=== PATIENT | male | born 1960 | race Caucasian/White ===

== ENCOUNTER 2021-07-30 21:14 | Observation (INO) | payer MEDICAID, OTHER, SELFPAY ==
[~2021-07-30] VITALS: Ht 170.2 cm; Wt 104.0 kg
[2021-07-31] MEDS ORDERED: PERCOCET 5MG/325MG TAB PO ONE (00:20)
[2021-07-31 00:34] LABS: BASO % 0.3 % (0.0-1.0); EOS # 0.2 10^3/uL (0.0-0.5); EOS % 1.2 % (0.0-3.0); HEMATOCRIT 45.8 % (42.0-52.0); HEMOGLOBIN 15.6 g/dl (13.5-17.5); LYMPH # 2.3 10^3/uL (1.5-5.0); LYMPH % 17.3 % (24.0-44.0); MEAN CORPUSCULAR HGB CONC 34.1 g/dl (32.0-36.5); MONO # 0.9 10^3/uL (0.0-0.8); MONO % 6.9 % (2.0-8.0); NEUTROPHILS # 9.8 10^3/uL (1.5-8.5); NEUTROPHILS % 73.9 % (36.0-66.0); PLATELET COUNT, AUTOMATED 308 10^3/uL (150-450); RED BLOOD COUNT 4.87 10^6/uL (4.30-6.10); WHITE BLOOD COUNT 13.3 10^3/uL (4.0-10.0)
[2021-07-31 00:52] LABS: ERYTHROCYTE SEDIMENTATION RATE 19 mm/hr (0-20)
[2021-07-31 01:22] LABS: ALBUMIN 3.3 GM/DL (3.2-5.2); BILIRUBIN,TOTAL 0.5 MG/DL (0.2-1.0); BLOOD UREA NITROGEN 15 MG/DL (7-18); CALCIUM LEVEL 8.2 MG/DL (8.5-10.1); CARBON DIOXIDE LEVEL 25 MEQ/L (21-32); CHLORIDE LEVEL 109 MEQ/L (98-107); CREATININE FOR GFR 0.95 MG/DL (0.70-1.30); GLOMERULAR FILTRATION RATE > 60.0 (>56); GLUCOSE, FASTING 132 MG/DL (70-100); POTASSIUM SERUM 4.2 MEQ/L (3.5-5.1); SODIUM LEVEL 141 MEQ/L (136-145); TOTAL PROTEIN 6.7 GM/DL (6.4-8.2)
[2021-07-31 01:44] LABS: ALT/SGPT 28 U/L (12-78)
[2021-07-31] MEDS ORDERED: traMADol 50 MG TAB PO PRN (03:10)
[2021-07-31] MEDS ORDERED: KETOROLAC 30 MG/ML 1ML VIAL IV PRN (03:10)
[2021-07-31 03:26] LABS: RSV AMPLIFICATION NEGATIVE (NEGATIVE)
[2021-07-31] MEDS ORDERED: DEXTROSE 50% 50 ML SYRINGE IV PRN (03:45)
[2021-07-31] MEDS ORDERED: GLUCAGON INJ 1MG VIAL SC PRN (03:45)
[2021-07-31] MEDS ORDERED: GLUCOSE 4GM CHEW TABLET PO PRN (03:45)
[2021-07-31] MEDS ORDERED: OXYC10TA3 PO (04:00)
[2021-07-31] MEDS ORDERED: HYDR-3490 PO (04:00)
[2021-07-31] MEDS ORDERED: HOME MED LIST COMPLETE! XX SCH (04:00)
[2021-07-31] MEDS ORDERED: LOPR1TAB7 PO (04:00)
[2021-07-31] MEDS ORDERED: FENO145T7 PO (04:00)
[2021-07-31] MEDS ORDERED: CLON1TAB17 PO (04:00)
[2021-07-31] MEDS ORDERED: ATEN25TA PO (04:00)
[2021-07-31] MEDS ORDERED: MED NOTE (04:00)
[2021-07-31] MEDS ORDERED: SIMV40TA20 PO (04:00)
[2021-07-31] MEDS ORDERED: NEUR600T PO (04:00)
[2021-07-31] MEDS ORDERED: GABAPENTIN 100 MG CAP PO SCH (05:00)
[2021-07-31] MEDS: HEPARIN SOD (PORCINE) 5000UNITS/ML 1ML VIAL/SYRINGE SC SCH ×3 (06:48→21:13)
[2021-07-31] MEDS: INSULIN LISPRO (NovoLOG) PER UNIT SC SCH ×4 (08:16→20:02)
[2021-07-31 09:16] LABS: FREE T4 1.19 NG/DL (0.76-1.46); THYROID STIMULATING HORMONE 2.41 uIU/ML (0.358-3.740)
[2021-07-31] MEDS: PERCOCET 5MG/325MG TAB PO PRN ×2 (12:17→21:13)
[2021-07-31 13:35] VITALS: BP 124/76
[2021-07-31] MEDS: SIMVASTATIN 40 MG TAB PO SCH (13:51)
[2021-07-31] MEDS: FENOFIBRATE 145MG TABLET (TRICOR) PO SCH (13:51)
[2021-07-31] MEDS: clonazePAM 0.5 MG TAB PO SCH ×2 (13:51→21:12)
[2021-07-31] MEDS: METOPROLOL TARTRATE 100MG TAB PO SCH ×2 (13:51→21:03)
[2021-07-31] MEDS: atenoloL 25 MG TAB PO SCH (13:52)
[2021-07-31] MEDS: GABAPENTIN 300 MG CAP PO SCH ×2 (18:03→21:12)
[2021-07-31] MEDS: DULoxetine 20 MG CAP (CYMBALTA) PO SCH (18:04)
[2021-07-31 22:00] VITALS: BP 102/66
[2021-08-01] MEDS: HEPARIN SOD (PORCINE) 5000UNITS/ML 1ML VIAL/SYRINGE SC SCH ×3 (05:17→20:18)
[2021-08-01 06:00] VITALS: BP 103/64
[2021-08-01 06:29] LABS: HEMATOCRIT 42.9 % (42.0-52.0); HEMOGLOBIN 13.9 g/dl (13.5-17.5); MEAN CORPUSCULAR HGB CONC 32.4 g/dl (32.0-36.5); MEAN CORPUSCULAR VOLUME 98.8 fl (80.0-96.0); PLATELET COUNT, AUTOMATED 260 10^3/uL (150-450); RED BLOOD COUNT 4.34 10^6/uL (4.30-6.10); WHITE BLOOD COUNT 10.5 10^3/uL (4.0-10.0)
[2021-08-01 07:07] LABS: BLOOD UREA NITROGEN 24 MG/DL (7-18); CALCIUM LEVEL 8.2 MG/DL (8.5-10.1); CARBON DIOXIDE LEVEL 29 MEQ/L (21-32); CHLORIDE LEVEL 105 MEQ/L (98-107); CREATININE FOR GFR 1.07 MG/DL (0.70-1.30); GLOMERULAR FILTRATION RATE > 60.0 (>56); GLUCOSE, FASTING 139 MG/DL (70-100); POTASSIUM SERUM 4.4 MEQ/L (3.5-5.1); SODIUM LEVEL 141 MEQ/L (136-145)
[2021-08-01] MEDS: atenoloL 25 MG TAB PO SCH (09:00)
[2021-08-01] MEDS: INSULIN LISPRO (NovoLOG) PER UNIT SC SCH ×4 (09:06→20:14)
[2021-08-01] MEDS: SIMVASTATIN 40 MG TAB PO SCH (09:07)
[2021-08-01] MEDS: clonazePAM 0.5 MG TAB PO SCH ×2 (09:07→20:18)
[2021-08-01] MEDS: FENOFIBRATE 145MG TABLET (TRICOR) PO SCH (09:07)
[2021-08-01] MEDS: GABAPENTIN 300 MG CAP PO SCH ×3 (09:07→20:18)
[2021-08-01] MEDS: PERCOCET 5MG/325MG TAB PO PRN ×2 (09:08→20:19)
[2021-08-01] MEDS: DULoxetine 20 MG CAP (CYMBALTA) PO SCH (09:12)
[2021-08-01 14:00] VITALS: BP 108/75
[2021-08-01 22:00] VITALS: BP 104/64
[2021-08-02 05:08] LABS: HEMATOCRIT 41.9 % (42.0-52.0); HEMOGLOBIN 13.6 g/dl (13.5-17.5); MEAN CORPUSCULAR HEMOGLOBIN 31.9 pg (27.0-33.0); MEAN CORPUSCULAR HGB CONC 32.5 g/dl (32.0-36.5); MEAN CORPUSCULAR VOLUME 98.1 fl (80.0-96.0); PLATELET COUNT, AUTOMATED 241 10^3/uL (150-450); RED BLOOD COUNT 4.27 10^6/uL (4.30-6.10); WHITE BLOOD COUNT 8.4 10^3/uL (4.0-10.0)
[2021-08-02] MEDS: HEPARIN SOD (PORCINE) 5000UNITS/ML 1ML VIAL/SYRINGE SC SCH ×2 (05:24→14:19)
[2021-08-02 05:36] LABS: BLOOD UREA NITROGEN 17 MG/DL (7-18); CALCIUM LEVEL 7.8 MG/DL (8.5-10.1); CARBON DIOXIDE LEVEL 30 MEQ/L (21-32); CHLORIDE LEVEL 106 MEQ/L (98-107); CREATININE FOR GFR 0.76 MG/DL (0.70-1.30); GLOMERULAR FILTRATION RATE > 60.0 (>56); GLUCOSE, FASTING 109 MG/DL (70-100); POTASSIUM SERUM 4.2 MEQ/L (3.5-5.1); SODIUM LEVEL 141 MEQ/L (136-145)
[2021-08-02 06:00] VITALS: BP 98/59
[2021-08-02] MEDS: INSULIN LISPRO (NovoLOG) PER UNIT SC SCH ×2 (07:30→11:52)
[2021-08-02 09:00] VITALS: BP 108/80
[2021-08-02] MEDS: atenoloL 25 MG TAB PO SCH (09:00)
[2021-08-02] MEDS: DULoxetine 20 MG CAP (CYMBALTA) PO SCH (09:56)
[2021-08-02] MEDS: SIMVASTATIN 40 MG TAB PO SCH (09:58)
[2021-08-02] MEDS: FENOFIBRATE 145MG TABLET (TRICOR) PO SCH (09:58)
[2021-08-02] MEDS: clonazePAM 0.5 MG TAB PO SCH (09:59)
[2021-08-02] MEDS: GABAPENTIN 300 MG CAP PO SCH (09:59)
[2021-08-02] MEDS ORDERED: GABA-282 PO ×2 (10:17→16:03)
[2021-08-02] MEDS ORDERED: CLON0.5T2 PO ×2 (10:17→16:03)
[2021-08-02] MEDS ORDERED: CYMB1CAP4 PO ×2 (10:17→16:03)
[2021-08-02] MEDS ORDERED: PERCOCET PO (10:17)
[2021-08-02] MEDS: PERCOCET 5MG/325MG TAB PO PRN (11:42)
[2021-08-02 14:00] VITALS: BP 145/94
[2021-08-02] MEDS ORDERED: SIMV40TA20 PO (16:03)
== END 2021-08-02 14:34 ==
LOC: M ED 21:14 → M ED INP 21:15 → ENRESERV 07-31 11:45 → M MSPAV 07-31 13:34
PROVIDERS: ADMIT Internal Medicine; ATTEND Internal Medicine
DX: R53.1 Weakness (principal); Z72.3 Lack of physical exercise; M54.9 Dorsalgia, unspecified; R29.6 Repeated falls; G62.9 Polyneuropathy, unspecified; Z88.0 Allergy status to penicillin; Z79.899 Other long term (current) drug therapy; M25.562 Pain in left knee; M25.572 Pain in left ankle and joints of left foot; W19.XXXA Unspecified fall, initial encounter; Y92.89 Other specified places as the place of occurrence of the external cause; Y93.9 Activity, unspecified; Y99.9 Unspecified external cause status
CPT/HCPCS: 36415; 72128; 72131; 73564; 73610; 80048; 80053; 84439; 84443; 85025; 85027; 85652; 87631; 93005; 96372; 96374; 97116; 97161; 97165; 97530; 97535; 99285; J1644; J1815; J1885

== ENCOUNTER 2021-08-02 12:48 | Inpatient (IN) | payer OTHER, SELFPAY ==
[~2021-08-02] VITALS: Ht 170.2 cm; Wt 104.9 kg
[~2021-08-02 12:48] MED LIST: ATEN25TA PO; CLON0.5T2 PO; CLON1TAB17 PO; CYMB1CAP4 PO; FENO145T7 PO; GABA-282 PO; HYDR-3490 PO; LOPR1TAB7 PO; MED NOTE; NEUR600T PO; OXYC10TA3 PO; PERCOCET PO; SIMV40TA20 PO
[2021-08-02 14:50] VITALS: BP 148/77
[2021-08-02] MEDS ORDERED: DEXTROSE 50% 50 ML SYRINGE IV PRN (15:35)
[2021-08-02] MEDS ORDERED: BISACODYL 10 MG SUPP PR PRN (15:35)
[2021-08-02] MEDS ORDERED: GLUCOSE 4GM CHEW TABLET PO PRN (15:35)
[2021-08-02] MEDS ORDERED: MIRALAX *UNIT DOSE* 17GM PACKET PO PRN (15:35)
[2021-08-02] MEDS ORDERED: GLUCAGON INJ 1MG VIAL SC PRN (15:35)
[2021-08-02] MEDS: REMEDY PHYTOPLEX Z-GUARD PASTE 113GM TUBE (FROM STOREROOM PRODUCT) TOP SCH ×2 (16:00→20:49)
[2021-08-02] MEDS ORDERED: GABA-282 PO (16:03)
[2021-08-02] MEDS ORDERED: SIMV40TA20 PO (16:03)
[2021-08-02] MEDS ORDERED: CLON0.5T2 PO (16:03)
[2021-08-02] MEDS ORDERED: CYMB1CAP4 PO (16:03)
[2021-08-02] MEDS: GABAPENTIN 300 MG CAP PO SCH ×2 (16:03→20:48)
[2021-08-02] MEDS: ACETAMINOPHEN 500 MG TAB PO SCH ×2 (16:03→20:48)
[2021-08-02] MEDS: PANTOPRAZOLE 40MG TAB (PROTONIX) PO SCH (16:04)
[2021-08-02] MEDS ORDERED: HOME MED LIST COMPLETE! XX SCH (16:05)
[2021-08-02] MEDS: HumaLOG INSULIN (NovoLOG) PER UNIT SC SCH ×2 (17:21→20:49)
[2021-08-02] MEDS: oxyCODONE 5MG TAB PO PRN (17:22)
[2021-08-02 20:00] VITALS: BP 148/92
[2021-08-02] MEDS: SENNA 8.6 MG TAB (SENOKOT) PO SCH (20:48)
[2021-08-02] MEDS: DOCUSATE SODIUM 100MG CAPSULE PO SCH (20:48)
[2021-08-02] MEDS: clonazePAM 0.5 MG TAB PO SCH (20:48)
[2021-08-02] MEDS: HEPARIN SOD (PORCINE) 5000UNITS/ML 1ML VIAL/SYRINGE SC SCH (20:49)
[2021-08-03] MEDS: oxyCODONE 5MG TAB PO PRN ×2 (02:13→06:28)
[2021-08-03 06:00] VITALS: BP 140/89
[2021-08-03 07:33] LABS: BASO % 0.4 % (0.0-1.0); EOS # 0.3 10^3/uL (0.0-0.5); EOS % 3.5 % (0.0-3.0); HEMOGLOBIN 13.4 g/dl (13.5-17.5); LYMPH # 1.9 10^3/uL (1.5-5.0); MEAN CORPUSCULAR HEMOGLOBIN 32.1 pg (27.0-33.0); MEAN CORPUSCULAR HGB CONC 32.7 g/dl (32.0-36.5); MEAN CORPUSCULAR VOLUME 98.1 fl (80.0-96.0); MONO # 0.6 10^3/uL (0.0-0.8); MONO % 7.5 % (2.0-8.0); NEUTROPHILS # 5.1 10^3/uL (1.5-8.5); NEUTROPHILS % 63.8 % (36.0-66.0); PLATELET COUNT, AUTOMATED 241 10^3/uL (150-450); RED BLOOD COUNT 4.18 10^6/uL (4.30-6.10)
[2021-08-03 08:02] LABS: ALT/SGPT 29 U/L (12-78); BILIRUBIN,TOTAL 0.8 MG/DL (0.2-1.0); BLOOD UREA NITROGEN 17 MG/DL (7-18); CALCIUM LEVEL 8.3 MG/DL (8.5-10.1); CARBON DIOXIDE LEVEL 31 MEQ/L (21-32); CHLORIDE LEVEL 108 MEQ/L (98-107); CREATININE FOR GFR 0.73 MG/DL (0.70-1.30); GLOMERULAR FILTRATION RATE > 60.0 (>56); GLUCOSE, FASTING 115 MG/DL (70-100); POTASSIUM SERUM 4.2 MEQ/L (3.5-5.1); SODIUM LEVEL 140 MEQ/L (136-145); TOTAL PROTEIN 6.4 GM/DL (6.4-8.2)
[2021-08-03] MEDS: REMEDY PHYTOPLEX Z-GUARD PASTE 113GM TUBE (FROM STOREROOM PRODUCT) TOP SCH ×3 (08:05→20:48)
[2021-08-03] MEDS: HumaLOG INSULIN (NovoLOG) PER UNIT SC SCH ×4 (08:46→20:48)
[2021-08-03] MEDS: SIMVASTATIN 40 MG TAB PO SCH (08:47)
[2021-08-03] MEDS: FENOFIBRATE 145MG TABLET (TRICOR) PO SCH (08:47)
[2021-08-03] MEDS: HEPARIN SOD (PORCINE) 5000UNITS/ML 1ML VIAL/SYRINGE SC SCH ×2 (08:47→20:47)
[2021-08-03] MEDS: ACETAMINOPHEN 500 MG TAB PO SCH (08:47)
[2021-08-03] MEDS: DULoxetine 20 MG CAP (CYMBALTA) PO SCH (08:47)
[2021-08-03] MEDS: PANTOPRAZOLE 40MG TAB (PROTONIX) PO SCH (08:47)
[2021-08-03] MEDS: GABAPENTIN 300 MG CAP PO SCH ×3 (08:47→20:45)
[2021-08-03] MEDS: clonazePAM 0.5 MG TAB PO SCH ×2 (08:47→20:46)
[2021-08-03] MEDS: DOCUSATE SODIUM 100MG CAPSULE PO SCH ×2 (08:48→20:45)
[2021-08-03] MEDS: PERCOCET 5MG/325MG TAB PO SCH ×3 (12:48→20:47)
[2021-08-03] MEDS: LIDOCAINE 5% (LIDODERM) PATCH TD SCH (12:49)
[2021-08-03] MEDS: predniSONE 5 MG TAB PO SCH (12:51)
[2021-08-03 14:00] VITALS: BP 124/82
[2021-08-03 20:00] VITALS: BP 122/78
[2021-08-03] MEDS: SENNA 8.6 MG TAB (SENOKOT) PO SCH (20:45)
[2021-08-03] MEDS: **NOTE PATIENT COMMENT** MISC XX SCH (20:49)
[2021-08-04 06:00] VITALS: BP 118/80
[2021-08-04] MEDS: PERCOCET 5MG/325MG TAB PO SCH ×4 (06:30→21:13)
[2021-08-04 06:57] LABS: BASO % 0.3 % (0.0-1.0); EOS # 0.3 10^3/uL (0.0-0.5); EOS % 2.5 % (0.0-3.0); HEMATOCRIT 42.5 % (42.0-52.0); HEMOGLOBIN 13.8 g/dl (13.5-17.5); LYMPH # 1.9 10^3/uL (1.5-5.0); LYMPH % 18.8 % (24.0-44.0); MEAN CORPUSCULAR HEMOGLOBIN 31.7 pg (27.0-33.0); MEAN CORPUSCULAR HGB CONC 32.5 g/dl (32.0-36.5); MEAN CORPUSCULAR VOLUME 97.7 fl (80.0-96.0); MONO # 0.7 10^3/uL (0.0-0.8); MONO % 7.3 % (2.0-8.0); NEUTROPHILS % 70.3 % (36.0-66.0); PLATELET COUNT, AUTOMATED 242 10^3/uL (150-450); RED BLOOD COUNT 4.35 10^6/uL (4.30-6.10); WHITE BLOOD COUNT 9.9 10^3/uL (4.0-10.0)
[2021-08-04 07:28] LABS: BLOOD UREA NITROGEN 17 MG/DL (7-18); CALCIUM LEVEL 8.4 MG/DL (8.5-10.1); CARBON DIOXIDE LEVEL 32 MEQ/L (21-32); CHLORIDE LEVEL 103 MEQ/L (98-107); GLOMERULAR FILTRATION RATE > 60.0 (>56); GLUCOSE, FASTING 116 MG/DL (70-100); POTASSIUM SERUM 4.5 MEQ/L (3.5-5.1); SODIUM LEVEL 139 MEQ/L (136-145)
[2021-08-04] MEDS: REMEDY PHYTOPLEX Z-GUARD PASTE 113GM TUBE (FROM STOREROOM PRODUCT) TOP SCH ×3 (09:00→21:00)
[2021-08-04] MEDS: HumaLOG INSULIN (NovoLOG) PER UNIT SC SCH ×4 (09:21→21:22)
[2021-08-04] MEDS: LIDOCAINE 5% (LIDODERM) PATCH TD SCH (09:22)
[2021-08-04] MEDS: SIMVASTATIN 40 MG TAB PO SCH (09:23)
[2021-08-04] MEDS: clonazePAM 0.5 MG TAB PO SCH ×3 (09:23→21:13)
[2021-08-04] MEDS: HEPARIN SOD (PORCINE) 5000UNITS/ML 1ML VIAL/SYRINGE SC SCH ×2 (09:23→21:11)
[2021-08-04] MEDS: DOCUSATE SODIUM 100MG CAPSULE PO SCH ×2 (09:23→21:13)
[2021-08-04] MEDS: GABAPENTIN 300 MG CAP PO SCH ×3 (09:24→21:11)
[2021-08-04] MEDS: predniSONE 5 MG TAB PO SCH (09:24)
[2021-08-04] MEDS: DULoxetine 20 MG CAP (CYMBALTA) PO SCH (09:24)
[2021-08-04] MEDS: FENOFIBRATE 145MG TABLET (TRICOR) PO SCH (09:24)
[2021-08-04] MEDS: PANTOPRAZOLE 40MG TAB (PROTONIX) PO SCH (09:24)
[2021-08-04 14:00] VITALS: BP 130/78
[2021-08-04 20:30] VITALS: BP 110/62
[2021-08-04] MEDS: SENNA 8.6 MG TAB (SENOKOT) PO SCH (21:14)
[2021-08-04] MEDS: **NOTE PATIENT COMMENT** MISC XX SCH (21:22)
[2021-08-05] MEDS: oxyCODONE 5MG TAB PO PRN (02:27)
[2021-08-05 06:00] VITALS: BP 132/80
[2021-08-05] MEDS: PERCOCET 5MG/325MG TAB PO SCH ×4 (06:32→21:20)
[2021-08-05] MEDS: HumaLOG INSULIN (NovoLOG) PER UNIT SC SCH ×4 (08:45→21:00)
[2021-08-05] MEDS: DULoxetine 20 MG CAP (CYMBALTA) PO SCH (08:47)
[2021-08-05] MEDS: predniSONE 5 MG TAB PO SCH (08:47)
[2021-08-05] MEDS: clonazePAM 0.5 MG TAB PO SCH ×3 (08:48→21:19)
[2021-08-05] MEDS: HEPARIN SOD (PORCINE) 5000UNITS/ML 1ML VIAL/SYRINGE SC SCH ×2 (08:49→21:18)
[2021-08-05] MEDS: GABAPENTIN 300 MG CAP PO SCH ×3 (08:49→21:19)
[2021-08-05] MEDS: PANTOPRAZOLE 40MG TAB (PROTONIX) PO SCH (08:49)
[2021-08-05] MEDS: SIMVASTATIN 40 MG TAB PO SCH (08:49)
[2021-08-05] MEDS: FENOFIBRATE 145MG TABLET (TRICOR) PO SCH (08:49)
[2021-08-05] MEDS: LIDOCAINE 5% (LIDODERM) PATCH TD SCH (08:51)
[2021-08-05] MEDS: REMEDY PHYTOPLEX Z-GUARD PASTE 113GM TUBE (FROM STOREROOM PRODUCT) TOP SCH ×3 (08:52→21:00)
[2021-08-05] MEDS: DOCUSATE SODIUM 100MG CAPSULE PO SCH ×2 (08:54→21:19)
[2021-08-05 09:01] VITALS: BP 137/80
[2021-08-05] MEDS: ONDANSETRON 4 MG ORAL DISINTEGRATING TAB PO PRN (12:46)
[2021-08-05 13:27] VITALS: BP 157/83
[2021-08-05 20:00] VITALS: BP 127/75
[2021-08-05] MEDS: SENNA 8.6 MG TAB (SENOKOT) PO SCH (21:19)
[2021-08-05] MEDS: **NOTE PATIENT COMMENT** MISC XX SCH (21:20)
[2021-08-06] MEDS: oxyCODONE 5MG TAB PO PRN (02:43)
[2021-08-06 06:00] VITALS: BP 137/85
[2021-08-06] MEDS ORDERED: IPRATROPIUM 0.5MG/ALBUTEROL 2.5MG INH SOL UD 3ML (DUONEB) NEB ONE (06:15)
[2021-08-06 06:36] LABS: BASO # 0.1 10^3/uL (0.0-0.2); BASO % 0.3 % (0.0-1.0); EOS # 0.2 10^3/uL (0.0-0.5); EOS % 1.3 % (0.0-3.0); HEMATOCRIT 43.7 % (42.0-52.0); HEMOGLOBIN 13.9 g/dl (13.5-17.5); LYMPH # 1.3 10^3/uL (1.5-5.0); LYMPH % 8.2 % (24.0-44.0); MEAN CORPUSCULAR HEMOGLOBIN 32.2 pg (27.0-33.0); MEAN CORPUSCULAR HGB CONC 31.8 g/dl (32.0-36.5); MEAN CORPUSCULAR VOLUME 101.2 fl (80.0-96.0); MONO # 1.1 10^3/uL (0.0-0.8); MONO % 7.2 % (2.0-8.0); NEUTROPHILS # 12.4 10^3/uL (1.5-8.5); NEUTROPHILS % 81.8 % (36.0-66.0); PLATELET COUNT, AUTOMATED 241 10^3/uL (150-450); RED BLOOD COUNT 4.32 10^6/uL (4.30-6.10); VENOUS HCO3 27.1 MEQ/L (23.0-27.0); VENOUS O2 SATURATION 96.4 % (60.0-80.0); VENOUS PARTIAL PRESSURE CO2 48.7 mmHg (38.0-50.0); VENOUS PARTIAL PRESSURE O2 84.9 mmHg (30.0-50.0); VENOUS PH 7.363 UNITS (7.330-7.430); VENOUS STANDARD HCO3 25.3 MEQ/L; VENOUS TOTAL CO2 28.6 MEQ/L (24.0-28.0); WHITE BLOOD COUNT 15.2 10^3/uL (4.0-10.0)
[2021-08-06 07:09] LABS: BLOOD UREA NITROGEN 18 MG/DL (7-18); CALCIUM LEVEL 8.1 MG/DL (8.5-10.1); CARBON DIOXIDE LEVEL 31 MEQ/L (21-32); CHLORIDE LEVEL 102 MEQ/L (98-107); GLOMERULAR FILTRATION RATE > 60.0 (>56); GLUCOSE, FASTING 178 MG/DL (70-100); NT-PRO BNP 253 PG/ML (<125); POTASSIUM SERUM 5.3 MEQ/L (3.5-5.1); SODIUM LEVEL 137 MEQ/L (136-145)
[2021-08-06] MEDS: PERCOCET 5MG/325MG TAB PO SCH ×4 (08:05→20:25)
[2021-08-06] MEDS: predniSONE 5 MG TAB PO SCH (08:06)
[2021-08-06] MEDS: HEPARIN SOD (PORCINE) 5000UNITS/ML 1ML VIAL/SYRINGE SC SCH ×2 (08:06→20:23)
[2021-08-06] MEDS: clonazePAM 0.5 MG TAB PO SCH ×3 (08:06→20:23)
[2021-08-06] MEDS: PANTOPRAZOLE 40MG TAB (PROTONIX) PO SCH (08:06)
[2021-08-06] MEDS: GABAPENTIN 300 MG CAP PO SCH ×3 (08:06→20:24)
[2021-08-06] MEDS: FENOFIBRATE 145MG TABLET (TRICOR) PO SCH (08:06)
[2021-08-06] MEDS: DOCUSATE SODIUM 100MG CAPSULE PO SCH ×2 (08:06→20:23)
[2021-08-06] MEDS: HumaLOG INSULIN (NovoLOG) PER UNIT SC SCH ×4 (08:06→20:25)
[2021-08-06] MEDS: SIMVASTATIN 40 MG TAB PO SCH (08:06)
[2021-08-06] MEDS: DULoxetine 20 MG CAP (CYMBALTA) PO SCH (08:06)
[2021-08-06] MEDS: guaiFENesin ER 600 MG TAB PO PRN (08:07)
[2021-08-06] MEDS: LIDOCAINE 5% (LIDODERM) PATCH TD SCH (08:07)
[2021-08-06] MEDS: REMEDY PHYTOPLEX Z-GUARD PASTE 113GM TUBE (FROM STOREROOM PRODUCT) TOP SCH ×3 (08:07→20:25)
[2021-08-06] MEDS: IPRATROPIUM 0.5MG/ALBUTEROL 2.5MG INH SOL UD 3ML (DUONEB) NEB SCH ×2 (08:07→14:00)
[2021-08-06] MEDS: LevoFLOXacin IV 750 MG in IV 1 EA IV SCH (08:57)
[2021-08-06 14:00] VITALS: BP 138/78
[2021-08-06 20:00] VITALS: BP 142/83
[2021-08-06] MEDS: SENNA 8.6 MG TAB (SENOKOT) PO SCH (20:24)
[2021-08-06] MEDS: **NOTE PATIENT COMMENT** MISC XX SCH (20:25)
[2021-08-07] MEDS: oxyCODONE 5MG TAB PO PRN (02:08)
[2021-08-07 06:40] VITALS: BP 140/88
[2021-08-07] MEDS: IPRATROPIUM 0.5MG/ALBUTEROL 2.5MG INH SOL UD 3ML (DUONEB) NEB SCH ×2 (07:25→15:14)
[2021-08-07] MEDS: HEPARIN SOD (PORCINE) 5000UNITS/ML 1ML VIAL/SYRINGE SC SCH ×2 (07:33→20:46)
[2021-08-07] MEDS: HumaLOG INSULIN (NovoLOG) PER UNIT SC SCH ×4 (07:34→20:47)
[2021-08-07] MEDS: clonazePAM 0.5 MG TAB PO SCH ×3 (07:34→20:46)
[2021-08-07] MEDS: PANTOPRAZOLE 40MG TAB (PROTONIX) PO SCH (07:34)
[2021-08-07] MEDS: DULoxetine 20 MG CAP (CYMBALTA) PO SCH (07:34)
[2021-08-07] MEDS: GABAPENTIN 300 MG CAP PO SCH ×3 (07:34→20:46)
[2021-08-07] MEDS: SIMVASTATIN 40 MG TAB PO SCH (07:34)
[2021-08-07] MEDS: PERCOCET 5MG/325MG TAB PO SCH ×4 (07:35→20:46)
[2021-08-07] MEDS: FENOFIBRATE 145MG TABLET (TRICOR) PO SCH (07:35)
[2021-08-07] MEDS: predniSONE 5 MG TAB PO SCH (07:35)
[2021-08-07] MEDS: DOCUSATE SODIUM 100MG CAPSULE PO SCH ×2 (07:36→20:46)
[2021-08-07] MEDS: REMEDY PHYTOPLEX Z-GUARD PASTE 113GM TUBE (FROM STOREROOM PRODUCT) TOP SCH ×3 (07:36→20:47)
[2021-08-07] MEDS: LIDOCAINE 5% (LIDODERM) PATCH TD SCH (07:36)
[2021-08-07 07:57] LABS: BASO # 0.1 10^3/uL (0.0-0.2); BASO % 0.4 % (0.0-1.0); EOS # 0.2 10^3/uL (0.0-0.5); EOS % 1.4 % (0.0-3.0); HEMATOCRIT 39.2 % (42.0-52.0); HEMOGLOBIN 12.7 g/dl (13.5-17.5); LYMPH # 1.5 10^3/uL (1.5-5.0); LYMPH % 10.5 % (24.0-44.0); MEAN CORPUSCULAR HEMOGLOBIN 32.2 pg (27.0-33.0); MEAN CORPUSCULAR HGB CONC 32.4 g/dl (32.0-36.5); MEAN CORPUSCULAR VOLUME 99.2 fl (80.0-96.0); MONO # 1.1 10^3/uL (0.0-0.8); MONO % 7.4 % (2.0-8.0); NEUTROPHILS # 11.2 10^3/uL (1.5-8.5); PLATELET COUNT, AUTOMATED 224 10^3/uL (150-450); RED BLOOD COUNT 3.95 10^6/uL (4.30-6.10); WHITE BLOOD COUNT 14.2 10^3/uL (4.0-10.0)
[2021-08-07 08:36] LABS: BLOOD UREA NITROGEN 15 MG/DL (7-18); CALCIUM LEVEL 8.4 MG/DL (8.5-10.1); CARBON DIOXIDE LEVEL 35 MEQ/L (21-32); CHLORIDE LEVEL 98 MEQ/L (98-107); CREATININE FOR GFR 0.84 MG/DL (0.70-1.30); GLOMERULAR FILTRATION RATE > 60.0 (>56); GLUCOSE, FASTING 128 MG/DL (70-100); MAGNESIUM LEVEL 1.9 MG/DL (1.8-2.4); POTASSIUM SERUM 4.1 MEQ/L (3.5-5.1); SODIUM LEVEL 138 MEQ/L (136-145)
[2021-08-07] MEDS: LevoFLOXacin IV 750 MG in IV 1 EA IV SCH (09:38)
[2021-08-07 14:00] VITALS: BP 134/68
[2021-08-07] MEDS: COMBIVENT RESPIMAT 100-20MCG INHALER 4GM INH SCH (17:51)
[2021-08-07 20:05] VITALS: BP 134/84
[2021-08-07] MEDS: SENNA 8.6 MG TAB (SENOKOT) PO SCH (20:46)
[2021-08-07] MEDS: **NOTE PATIENT COMMENT** MISC XX SCH (20:47)
[2021-08-08] MEDS: COMBIVENT RESPIMAT 100-20MCG INHALER 4GM INH SCH ×4 (02:00→20:20)
[2021-08-08] MEDS: oxyCODONE 5MG TAB PO PRN (02:07)
[2021-08-08 05:50] VITALS: BP 146/72
[2021-08-08] MEDS: LevoFLOXacin 750 MG TABLET PO SCH (05:56)
[2021-08-08] MEDS: PERCOCET 5MG/325MG TAB PO SCH ×2 (06:26→12:07)
[2021-08-08] MEDS: HumaLOG INSULIN (NovoLOG) PER UNIT SC SCH ×4 (08:42→20:03)
[2021-08-08] MEDS: LIDOCAINE 5% (LIDODERM) PATCH TD SCH (08:43)
[2021-08-08] MEDS: HEPARIN SOD (PORCINE) 5000UNITS/ML 1ML VIAL/SYRINGE SC SCH ×2 (08:44→20:57)
[2021-08-08] MEDS: PANTOPRAZOLE 40MG TAB (PROTONIX) PO SCH (08:45)
[2021-08-08] MEDS: FENOFIBRATE 145MG TABLET (TRICOR) PO SCH (08:46)
[2021-08-08] MEDS: DOCUSATE SODIUM 100MG CAPSULE PO SCH ×2 (08:46→20:57)
[2021-08-08] MEDS: GABAPENTIN 300 MG CAP PO SCH ×3 (08:46→20:57)
[2021-08-08] MEDS: clonazePAM 0.5 MG TAB PO SCH ×3 (08:46→20:57)
[2021-08-08] MEDS: SIMVASTATIN 40 MG TAB PO SCH (08:46)
[2021-08-08] MEDS: DULoxetine 20 MG CAP (CYMBALTA) PO SCH (08:46)
[2021-08-08] MEDS: predniSONE 5 MG TAB PO SCH (08:47)
[2021-08-08] MEDS: REMEDY PHYTOPLEX Z-GUARD PASTE 113GM TUBE (FROM STOREROOM PRODUCT) TOP SCH ×3 (08:47→20:59)
[2021-08-08 14:00] VITALS: BP 126/86
[2021-08-08] MEDS ORDERED: oxyCODONE 5MG TAB PO PRN ×2 (16:10→17:00)
[2021-08-08] MEDS ORDERED: clonazePAM 0.5 MG TAB PO PRN (16:15)
[2021-08-08] MEDS ORDERED: PILL CUTTER 1 EACH XX PRN (16:20)
[2021-08-08] MEDS: ACETAMINOPHEN 500 MG TAB PO SCH ×2 (17:01→20:57)
[2021-08-08 20:00] VITALS: BP 116/70
[2021-08-08] MEDS: oxyCODONE 10 MG CR TAB PO SCH (20:06)
[2021-08-08] MEDS: MELOXICAM (MOBIC) 7.5 MG TAB PO SCH (20:57)
[2021-08-08] MEDS: SENNA 8.6 MG TAB (SENOKOT) PO SCH (20:57)
[2021-08-08] MEDS: **NOTE PATIENT COMMENT** MISC XX SCH (20:59)
[2021-08-08] MEDS ORDERED: oxyCODONE 10 MG CR TAB PO SCH (21:00)
[2021-08-09] MEDS: oxyCODONE 5MG TAB PO PRN ×4 (00:27→16:19)
[2021-08-09] MEDS: COMBIVENT RESPIMAT 100-20MCG INHALER 4GM INH SCH ×4 (02:00→19:23)
[2021-08-09] MEDS: LevoFLOXacin 750 MG TABLET PO SCH (04:56)
[2021-08-09 06:00] VITALS: BP 122/70
[2021-08-09 06:57] LABS: BASO % 0.3 % (0.0-1.0); EOS # 0.2 10^3/uL (0.0-0.5); EOS % 2.2 % (0.0-3.0); HEMATOCRIT 40.4 % (42.0-52.0); HEMOGLOBIN 13.2 g/dl (13.5-17.5); LYMPH # 1.5 10^3/uL (1.5-5.0); LYMPH % 14.4 % (24.0-44.0); MEAN CORPUSCULAR HEMOGLOBIN 32.3 pg (27.0-33.0); MEAN CORPUSCULAR HGB CONC 32.7 g/dl (32.0-36.5); MEAN CORPUSCULAR VOLUME 98.8 fl (80.0-96.0); MONO # 0.8 10^3/uL (0.0-0.8); MONO % 7.5 % (2.0-8.0); NEUTROPHILS # 7.5 10^3/uL (1.5-8.5); PLATELET COUNT, AUTOMATED 226 10^3/uL (150-450); RED BLOOD COUNT 4.09 10^6/uL (4.30-6.10); WHITE BLOOD COUNT 10.1 10^3/uL (4.0-10.0)
[2021-08-09 07:22] LABS: BLOOD UREA NITROGEN 18 MG/DL (7-18); CALCIUM LEVEL 8.3 MG/DL (8.5-10.1); CARBON DIOXIDE LEVEL 36 MEQ/L (21-32); CHLORIDE LEVEL 100 MEQ/L (98-107); CREATININE FOR GFR 0.85 MG/DL (0.70-1.30); GLOMERULAR FILTRATION RATE > 60.0 (>56); GLUCOSE, FASTING 137 MG/DL (70-100); POTASSIUM SERUM 4.3 MEQ/L (3.5-5.1); SODIUM LEVEL 138 MEQ/L (136-145)
[2021-08-09] MEDS: oxyCODONE 10 MG CR TAB PO SCH ×2 (07:42→20:24)
[2021-08-09] MEDS: HumaLOG INSULIN (NovoLOG) PER UNIT SC SCH ×4 (07:42→20:24)
[2021-08-09] MEDS: REMEDY PHYTOPLEX Z-GUARD PASTE 113GM TUBE (FROM STOREROOM PRODUCT) TOP SCH ×3 (09:00→20:24)
[2021-08-09] MEDS: HEPARIN SOD (PORCINE) 5000UNITS/ML 1ML VIAL/SYRINGE SC SCH ×2 (09:16→20:22)
[2021-08-09] MEDS: FENOFIBRATE 145MG TABLET (TRICOR) PO SCH (09:16)
[2021-08-09] MEDS: LIDOCAINE 5% (LIDODERM) PATCH TD SCH (09:16)
[2021-08-09] MEDS: SIMVASTATIN 40 MG TAB PO SCH (09:16)
[2021-08-09] MEDS: DULoxetine 20 MG CAP (CYMBALTA) PO SCH (09:16)
[2021-08-09] MEDS: clonazePAM 0.5 MG TAB PO SCH ×3 (09:16→20:22)
[2021-08-09] MEDS: ACETAMINOPHEN 500 MG TAB PO SCH ×3 (09:17→20:23)
[2021-08-09] MEDS: predniSONE 5 MG TAB PO SCH (09:17)
[2021-08-09] MEDS: DOCUSATE SODIUM 100MG CAPSULE PO SCH ×2 (09:17→20:22)
[2021-08-09] MEDS: GABAPENTIN 300 MG CAP PO SCH ×3 (09:17→20:23)
[2021-08-09] MEDS: PANTOPRAZOLE 40MG TAB (PROTONIX) PO SCH (09:17)
[2021-08-09 14:08] VITALS: BP 149/73
[2021-08-09 20:00] VITALS: BP 129/67
[2021-08-09] MEDS: SENNA 8.6 MG TAB (SENOKOT) PO SCH (20:23)
[2021-08-09] MEDS: MELOXICAM (MOBIC) 7.5 MG TAB PO SCH (20:23)
[2021-08-09] MEDS: guaiFENesin ER 600 MG TAB PO PRN (20:23)
[2021-08-09] MEDS: **NOTE PATIENT COMMENT** MISC XX SCH (20:25)
[2021-08-10] MEDS: oxyCODONE 5MG TAB PO PRN ×3 (00:55→15:01)
[2021-08-10] MEDS: COMBIVENT RESPIMAT 100-20MCG INHALER 4GM INH SCH ×4 (02:41→19:12)
[2021-08-10] MEDS: LevoFLOXacin 750 MG TABLET PO SCH (05:16)
[2021-08-10 06:00] VITALS: BP 131/82
[2021-08-10] MEDS: HumaLOG INSULIN (NovoLOG) PER UNIT SC SCH ×4 (08:27→21:24)
[2021-08-10] MEDS: oxyCODONE 10 MG CR TAB PO SCH ×2 (08:28→20:04)
[2021-08-10] MEDS: REMEDY PHYTOPLEX Z-GUARD PASTE 113GM TUBE (FROM STOREROOM PRODUCT) TOP SCH ×3 (09:00→21:00)
[2021-08-10 09:32] VITALS: BP 140/80
[2021-08-10] MEDS: DULoxetine 20 MG CAP (CYMBALTA) PO SCH (09:46)
[2021-08-10] MEDS: LIDOCAINE 5% (LIDODERM) PATCH TD SCH (09:46)
[2021-08-10] MEDS: clonazePAM 0.5 MG TAB PO SCH ×3 (09:46→21:23)
[2021-08-10] MEDS: FENOFIBRATE 145MG TABLET (TRICOR) PO SCH (09:48)
[2021-08-10] MEDS: ACETAMINOPHEN 500 MG TAB PO SCH ×3 (09:48→21:22)
[2021-08-10] MEDS: DOCUSATE SODIUM 100MG CAPSULE PO SCH ×2 (09:48→21:23)
[2021-08-10] MEDS: GABAPENTIN 300 MG CAP PO SCH ×3 (09:48→21:22)
[2021-08-10] MEDS: SIMVASTATIN 40 MG TAB PO SCH (09:48)
[2021-08-10] MEDS: PANTOPRAZOLE 40MG TAB (PROTONIX) PO SCH (09:48)
[2021-08-10] MEDS: predniSONE 5 MG TAB PO SCH (09:48)
[2021-08-10] MEDS: HEPARIN SOD (PORCINE) 5000UNITS/ML 1ML VIAL/SYRINGE SC SCH ×2 (09:49→21:23)
[2021-08-10 10:40] VITALS: BP 141/84
[2021-08-10 14:00] VITALS: BP 139/92
[2021-08-10 20:00] VITALS: BP 138/88
[2021-08-10] MEDS: SENNA 8.6 MG TAB (SENOKOT) PO SCH (21:23)
[2021-08-10] MEDS: **NOTE PATIENT COMMENT** MISC XX SCH (21:24)
[2021-08-10] MEDS: MELOXICAM (MOBIC) 7.5 MG TAB PO SCH (21:32)
[2021-08-11] MEDS: oxyCODONE 5MG TAB PO PRN ×4 (01:10→16:41)
[2021-08-11] MEDS: COMBIVENT RESPIMAT 100-20MCG INHALER 4GM INH SCH ×4 (02:11→20:00)
[2021-08-11] MEDS: LevoFLOXacin 750 MG TABLET PO SCH (05:01)
[2021-08-11 06:00] VITALS: BP 138/90
[2021-08-11 07:51] LABS: BASO # 0.1 10^3/uL (0.0-0.2); BASO % 0.5 % (0.0-1.0); EOS # 0.3 10^3/uL (0.0-0.5); EOS % 2.5 % (0.0-3.0); HEMATOCRIT 41.3 % (42.0-52.0); HEMOGLOBIN 13.4 g/dl (13.5-17.5); LYMPH # 1.7 10^3/uL (1.5-5.0); LYMPH % 16.9 % (24.0-44.0); MEAN CORPUSCULAR HEMOGLOBIN 32.1 pg (27.0-33.0); MEAN CORPUSCULAR HGB CONC 32.4 g/dl (32.0-36.5); MEAN CORPUSCULAR VOLUME 98.8 fl (80.0-96.0); MONO # 0.6 10^3/uL (0.0-0.8); MONO % 6.5 % (2.0-8.0); NEUTROPHILS # 7.1 10^3/uL (1.5-8.5); NEUTROPHILS % 72.3 % (36.0-66.0); PLATELET COUNT, AUTOMATED 267 10^3/uL (150-450); RED BLOOD COUNT 4.18 10^6/uL (4.30-6.10); WHITE BLOOD COUNT 9.8 10^3/uL (4.0-10.0)
[2021-08-11] MEDS: oxyCODONE 10 MG CR TAB PO SCH ×2 (08:04→20:09)
[2021-08-11 08:19] LABS: BLOOD UREA NITROGEN 26 MG/DL (7-18); CALCIUM LEVEL 8.5 MG/DL (8.5-10.1); CARBON DIOXIDE LEVEL 34 MEQ/L (21-32); CHLORIDE LEVEL 105 MEQ/L (98-107); CREATININE FOR GFR 1.05 MG/DL (0.70-1.30); GLOMERULAR FILTRATION RATE > 60.0 (>56); GLUCOSE, FASTING 142 MG/DL (70-100); POTASSIUM SERUM 4.6 MEQ/L (3.5-5.1); SODIUM LEVEL 141 MEQ/L (136-145)
[2021-08-11] MEDS: HumaLOG INSULIN (NovoLOG) PER UNIT SC SCH ×4 (08:56→21:00)
[2021-08-11] MEDS: DOCUSATE SODIUM 100MG CAPSULE PO SCH ×2 (08:57→21:30)
[2021-08-11] MEDS: predniSONE 5 MG TAB PO SCH (08:58)
[2021-08-11] MEDS: DULoxetine 20 MG CAP (CYMBALTA) PO SCH (08:58)
[2021-08-11] MEDS: REMEDY PHYTOPLEX Z-GUARD PASTE 113GM TUBE (FROM STOREROOM PRODUCT) TOP SCH ×3 (09:00→21:00)
[2021-08-11] MEDS: GABAPENTIN 300 MG CAP PO SCH ×3 (09:00→21:30)
[2021-08-11] MEDS: PANTOPRAZOLE 40MG TAB (PROTONIX) PO SCH (09:00)
[2021-08-11] MEDS: ANUSOL HC CREAM 30GM TOP SCH ×2 (09:00→21:33)
[2021-08-11] MEDS: clonazePAM 0.5 MG TAB PO SCH ×3 (09:00→21:31)
[2021-08-11] MEDS: ACETAMINOPHEN 500 MG TAB PO SCH ×3 (09:01→21:30)
[2021-08-11] MEDS: FENOFIBRATE 145MG TABLET (TRICOR) PO SCH (09:01)
[2021-08-11] MEDS: SIMVASTATIN 40 MG TAB PO SCH (09:02)
[2021-08-11] MEDS: HEPARIN SOD (PORCINE) 5000UNITS/ML 1ML VIAL/SYRINGE SC SCH ×2 (09:02→21:31)
[2021-08-11] MEDS: LIDOCAINE 5% (LIDODERM) PATCH TD SCH (09:04)
[2021-08-11 14:00] VITALS: BP 144/86
[2021-08-11] MEDS: MAGNESIUM SULFATE GRANULES(EPSOM SALT) 1LB TOP SCH (17:34)
[2021-08-11 20:00] VITALS: BP 150/82
[2021-08-11] MEDS: MELOXICAM (MOBIC) 7.5 MG TAB PO SCH (21:30)
[2021-08-11] MEDS: SENNA 8.6 MG TAB (SENOKOT) PO SCH (21:30)
[2021-08-11] MEDS: **NOTE PATIENT COMMENT** MISC XX SCH (21:32)
[2021-08-12] MEDS: COMBIVENT RESPIMAT 100-20MCG INHALER 4GM INH SCH ×4 (01:42→19:52)
[2021-08-12] MEDS: oxyCODONE 5MG TAB PO PRN ×3 (02:59→16:50)
[2021-08-12 06:00] VITALS: BP 150/60
[2021-08-12] MEDS: LevoFLOXacin 750 MG TABLET PO SCH (06:12)
[2021-08-12] MEDS: oxyCODONE 10 MG CR TAB PO SCH ×2 (07:31→20:04)
[2021-08-12] MEDS: HumaLOG INSULIN (NovoLOG) PER UNIT SC SCH ×4 (07:33→21:00)
[2021-08-12] MEDS: DULoxetine 30MG CAPSULE (CYMBALTA) PO SCH (08:12)
[2021-08-12] MEDS: DOCUSATE SODIUM 100MG CAPSULE PO SCH ×2 (08:12→21:07)
[2021-08-12] MEDS: clonazePAM 0.5 MG TAB PO SCH ×3 (08:14→21:08)
[2021-08-12] MEDS: PANTOPRAZOLE 40MG TAB (PROTONIX) PO SCH (08:14)
[2021-08-12] MEDS: GABAPENTIN 300 MG CAP PO SCH ×3 (08:14→21:07)
[2021-08-12] MEDS: FENOFIBRATE 145MG TABLET (TRICOR) PO SCH (08:15)
[2021-08-12] MEDS: SIMVASTATIN 40 MG TAB PO SCH (08:16)
[2021-08-12] MEDS: ACETAMINOPHEN 500 MG TAB PO SCH ×3 (08:16→21:08)
[2021-08-12] MEDS: HEPARIN SOD (PORCINE) 5000UNITS/ML 1ML VIAL/SYRINGE SC SCH ×2 (08:17→21:09)
[2021-08-12] MEDS: LIDOCAINE 5% (LIDODERM) PATCH TD SCH (08:17)
[2021-08-12] MEDS: REMEDY PHYTOPLEX Z-GUARD PASTE 113GM TUBE (FROM STOREROOM PRODUCT) TOP SCH ×3 (08:18→21:00)
[2021-08-12] MEDS: ANUSOL HC CREAM 30GM TOP SCH ×2 (08:18→21:10)
[2021-08-12] MEDS: TIOTROPIUM INHALER/CAPSULE (SPIRIVA) INH SCH (11:29)
[2021-08-12] MEDS: SYMBICORT 80/4.5MCG INHALER 6GM INH SCH ×2 (11:29→19:52)
[2021-08-12 14:00] VITALS: BP 135/81
[2021-08-12] MEDS: MAGNESIUM SULFATE GRANULES(EPSOM SALT) 1LB TOP SCH (16:51)
[2021-08-12 20:00] VITALS: BP 127/58
[2021-08-12] MEDS: MELOXICAM (MOBIC) 7.5 MG TAB PO SCH (21:07)
[2021-08-12] MEDS: SENNA 8.6 MG TAB (SENOKOT) PO SCH (21:08)
[2021-08-12] MEDS: **NOTE PATIENT COMMENT** MISC XX SCH (21:10)
[2021-08-13] MEDS: COMBIVENT RESPIMAT 100-20MCG INHALER 4GM INH SCH ×4 (01:32→19:50)
[2021-08-13] MEDS: oxyCODONE 5MG TAB PO PRN ×3 (03:33→16:27)
[2021-08-13 06:00] VITALS: BP 114/72
[2021-08-13] MEDS: HumaLOG INSULIN (NovoLOG) PER UNIT SC SCH ×4 (07:29→21:00)
[2021-08-13] MEDS: oxyCODONE 10 MG CR TAB PO SCH ×2 (07:30→19:59)
[2021-08-13] MEDS: DULoxetine 30MG CAPSULE (CYMBALTA) PO SCH (08:07)
[2021-08-13] MEDS: DOCUSATE SODIUM 100MG CAPSULE PO SCH ×2 (08:07→21:12)
[2021-08-13] MEDS: FENOFIBRATE 145MG TABLET (TRICOR) PO SCH (08:08)
[2021-08-13] MEDS: clonazePAM 0.5 MG TAB PO SCH ×3 (08:08→21:13)
[2021-08-13] MEDS: GABAPENTIN 300 MG CAP PO SCH ×3 (08:08→21:12)
[2021-08-13] MEDS: PANTOPRAZOLE 40MG TAB (PROTONIX) PO SCH (08:08)
[2021-08-13] MEDS: ACETAMINOPHEN 500 MG TAB PO SCH ×3 (08:09→21:13)
[2021-08-13] MEDS: SIMVASTATIN 40 MG TAB PO SCH (08:09)
[2021-08-13] MEDS: HEPARIN SOD (PORCINE) 5000UNITS/ML 1ML VIAL/SYRINGE SC SCH ×2 (08:10→21:13)
[2021-08-13] MEDS: LIDOCAINE 5% (LIDODERM) PATCH TD SCH (08:10)
[2021-08-13] MEDS: ANUSOL HC CREAM 30GM TOP SCH ×2 (08:14→21:15)
[2021-08-13] MEDS: REMEDY PHYTOPLEX Z-GUARD PASTE 113GM TUBE (FROM STOREROOM PRODUCT) TOP SCH ×3 (08:14→19:43)
[2021-08-13] MEDS: SYMBICORT 80/4.5MCG INHALER 6GM INH SCH ×2 (08:16→19:50)
[2021-08-13] MEDS: TIOTROPIUM INHALER/CAPSULE (SPIRIVA) INH SCH (08:16)
[2021-08-13 14:00] VITALS: BP 132/68
[2021-08-13] MEDS: MAGNESIUM SULFATE GRANULES(EPSOM SALT) 1LB TOP SCH (17:00)
[2021-08-13 19:28] VITALS: BP 128/76
[2021-08-13] MEDS: SENNA 8.6 MG TAB (SENOKOT) PO SCH (21:12)
[2021-08-13] MEDS: MELOXICAM (MOBIC) 7.5 MG TAB PO SCH (21:12)
[2021-08-13] MEDS: **NOTE PATIENT COMMENT** MISC XX SCH (21:14)
[2021-08-14] MEDS: oxyCODONE 5MG TAB PO PRN ×3 (01:08→12:51)
[2021-08-14] MEDS: COMBIVENT RESPIMAT 100-20MCG INHALER 4GM INH SCH ×4 (01:48→20:16)
[2021-08-14 05:04] VITALS: BP 120/70
[2021-08-14] MEDS: TIOTROPIUM INHALER/CAPSULE (SPIRIVA) INH SCH (07:26)
[2021-08-14] MEDS: SYMBICORT 80/4.5MCG INHALER 6GM INH SCH ×2 (07:27→20:16)
[2021-08-14] MEDS: oxyCODONE 10 MG CR TAB PO SCH ×2 (08:08→20:32)
[2021-08-14] MEDS: REMEDY PHYTOPLEX Z-GUARD PASTE 113GM TUBE (FROM STOREROOM PRODUCT) TOP SCH ×3 (09:00→20:33)
[2021-08-14 09:14] LABS: BASO % 0.4 % (0.0-1.0); EOS # 0.3 10^3/uL (0.0-0.5); HEMATOCRIT 42.6 % (42.0-52.0); LYMPH # 1.8 10^3/uL (1.5-5.0); LYMPH % 17.5 % (24.0-44.0); MEAN CORPUSCULAR HEMOGLOBIN 32.2 pg (27.0-33.0); MEAN CORPUSCULAR HGB CONC 32.9 g/dl (32.0-36.5); MEAN CORPUSCULAR VOLUME 97.9 fl (80.0-96.0); MONO # 0.7 10^3/uL (0.0-0.8); MONO % 6.6 % (2.0-8.0); NEUTROPHILS # 7.2 10^3/uL (1.5-8.5); NEUTROPHILS % 71.3 % (36.0-66.0); PLATELET COUNT, AUTOMATED 292 10^3/uL (150-450); RED BLOOD COUNT 4.35 10^6/uL (4.30-6.10); WHITE BLOOD COUNT 10.1 10^3/uL (4.0-10.0)
[2021-08-14 09:35] LABS: BLOOD UREA NITROGEN 20 MG/DL (7-18); CALCIUM LEVEL 8.6 MG/DL (8.5-10.1); CARBON DIOXIDE LEVEL 34 MEQ/L (21-32); CHLORIDE LEVEL 103 MEQ/L (98-107); CREATININE FOR GFR 0.97 MG/DL (0.70-1.30); GLOMERULAR FILTRATION RATE > 60.0 (>56); GLUCOSE, FASTING 169 MG/DL (70-100); POTASSIUM SERUM 4.1 MEQ/L (3.5-5.1); SODIUM LEVEL 141 MEQ/L (136-145)
[2021-08-14] MEDS: GABAPENTIN 300 MG CAP PO SCH ×3 (09:52→20:32)
[2021-08-14] MEDS: DOCUSATE SODIUM 100MG CAPSULE PO SCH ×2 (09:52→20:32)
[2021-08-14] MEDS: clonazePAM 0.5 MG TAB PO SCH ×3 (09:52→20:32)
[2021-08-14] MEDS: ACETAMINOPHEN 500 MG TAB PO SCH ×3 (09:52→20:32)
[2021-08-14] MEDS: SIMVASTATIN 40 MG TAB PO SCH (09:52)
[2021-08-14] MEDS: FENOFIBRATE 145MG TABLET (TRICOR) PO SCH (09:52)
[2021-08-14] MEDS: HEPARIN SOD (PORCINE) 5000UNITS/ML 1ML VIAL/SYRINGE SC SCH ×2 (09:53→20:33)
[2021-08-14] MEDS: PANTOPRAZOLE 40MG TAB (PROTONIX) PO SCH (09:53)
[2021-08-14] MEDS: DULoxetine 30MG CAPSULE (CYMBALTA) PO SCH (09:53)
[2021-08-14] MEDS: HumaLOG INSULIN (NovoLOG) PER UNIT SC SCH ×4 (09:54→20:33)
[2021-08-14] MEDS: LIDOCAINE 5% (LIDODERM) PATCH TD SCH (09:54)
[2021-08-14] MEDS: ANUSOL HC CREAM 30GM TOP SCH ×2 (09:55→20:33)
[2021-08-14] MEDS: ONDANSETRON 4 MG ORAL DISINTEGRATING TAB PO PRN (12:51)
[2021-08-14 14:00] VITALS: BP 118/74
[2021-08-14] MEDS: MAGNESIUM SULFATE GRANULES(EPSOM SALT) 1LB TOP SCH (17:00)
[2021-08-14] MEDS: MELOXICAM (MOBIC) 7.5 MG TAB PO SCH (20:31)
[2021-08-14] MEDS: SENNA 8.6 MG TAB (SENOKOT) PO SCH (20:32)
[2021-08-14] MEDS: **NOTE PATIENT COMMENT** MISC XX SCH (20:33)
[2021-08-15] MEDS: oxyCODONE 5MG TAB PO PRN ×4 (01:08→15:31)
[2021-08-15] MEDS: COMBIVENT RESPIMAT 100-20MCG INHALER 4GM INH SCH ×3 (01:51→13:18)
[2021-08-15 06:02] VITALS: BP 123/73
[2021-08-15] MEDS: TIOTROPIUM INHALER/CAPSULE (SPIRIVA) INH SCH (07:21)
[2021-08-15] MEDS: SYMBICORT 80/4.5MCG INHALER 6GM INH SCH (07:21)
[2021-08-15] MEDS: REMEDY PHYTOPLEX Z-GUARD PASTE 113GM TUBE (FROM STOREROOM PRODUCT) TOP SCH ×2 (09:00→15:33)
[2021-08-15] MEDS: SIMVASTATIN 40 MG TAB PO SCH (09:00)
[2021-08-15] MEDS: HEPARIN SOD (PORCINE) 5000UNITS/ML 1ML VIAL/SYRINGE SC SCH (09:00)
[2021-08-15] MEDS: HumaLOG INSULIN (NovoLOG) PER UNIT SC SCH ×2 (09:12→12:00)
[2021-08-15] MEDS: DULoxetine 30MG CAPSULE (CYMBALTA) PO SCH (09:14)
[2021-08-15] MEDS: GABAPENTIN 300 MG CAP PO SCH ×2 (09:14→15:30)
[2021-08-15] MEDS: DOCUSATE SODIUM 100MG CAPSULE PO SCH (09:14)
[2021-08-15] MEDS: oxyCODONE 10 MG CR TAB PO SCH (09:14)
[2021-08-15] MEDS: PANTOPRAZOLE 40MG TAB (PROTONIX) PO SCH (09:14)
[2021-08-15] MEDS: clonazePAM 0.5 MG TAB PO SCH ×2 (09:15→15:30)
[2021-08-15] MEDS: ACETAMINOPHEN 500 MG TAB PO SCH ×2 (09:15→15:32)
[2021-08-15] MEDS: FENOFIBRATE 145MG TABLET (TRICOR) PO SCH (09:16)
[2021-08-15] MEDS: LIDOCAINE 5% (LIDODERM) PATCH TD SCH (09:16)
[2021-08-15] MEDS: ANUSOL HC CREAM 30GM TOP SCH (09:18)
[2021-08-15] MEDS ORDERED: SYMB80INH INH (09:32)
[2021-08-15] MEDS ORDERED: SIMV40TA20 PO (09:32)
[2021-08-15] MEDS ORDERED: NARC1SPR NARES (09:32)
[2021-08-15] MEDS ORDERED: COMBAER6 INH (09:32)
[2021-08-15] MEDS ORDERED: MELO7.5T35 PO (09:32)
[2021-08-15] MEDS ORDERED: TIOT18INH INH (09:32)
[2021-08-15] MEDS ORDERED: FENO145T7 PO (09:32)
[2021-08-15] MEDS ORDERED: OXYC-517 PO (09:32)
[2021-08-15] MEDS ORDERED: HYDR-3490 PO (09:32)
[2021-08-15] MEDS ORDERED: CYMB1CAP5 PO (09:32)
[2021-08-15] MEDS ORDERED: GABA-282 PO (09:32)
[2021-08-15] MEDS ORDERED: CLON0.5T2 PO (09:32)
== END 2021-08-15 16:13 | disposition home health service (06) | DRG 347 ==
LOC: M PM&R 14:45
PROVIDERS: ADMIT Physical Medicine & Rehabilitation; ATTEND Physical Medicine & Rehabilitation
DX: M48.061 Spinal stenosis, lumbar region without neurogenic claudication (principal); E11.42 Type 2 diabetes mellitus with diabetic polyneuropathy; F11.20 Opioid dependence, uncomplicated; Z74.09 Other reduced mobility; Z74.1 Need for assistance with personal care; R53.1 Weakness; I10 Essential (primary) hypertension; E66.9 Obesity, unspecified; Z79.899 Other long term (current) drug therapy; Z88.0 Allergy status to penicillin; Z68.35 Body mass index [BMI] 35.0-35.9, adult; Z66 Do not resuscitate; F41.9 Anxiety disorder, unspecified; R29.6 Repeated falls; E78.5 Hyperlipidemia, unspecified